=== PATIENT | male | born 1970 | race Two or more races ===

== ENCOUNTER 2017-03-01 14:48 | Inpatient (IN) | payer MEDICAID ==
[~2017-03-01] VITALS: Ht 172.7 cm; Wt 99.8 kg
[2017-03-01 15:27] LABS: BASOPHILS # (AUTO) 0.1 /CMM (0.0-0.2); BASOPHILS % (AUTO) 0.6 % (0.0-2.0); EOSINOPHILS # (AUTO) 0.7 /CMM (0.0-0.7); EOSINOPHILS % (AUTO) 6.5 % (0.0-6.0); HEMATOCRIT 47 % (39-51); HEMOGLOBIN 16.1 g/dL (13.5-17.5); LYMPHOCYTES # (AUTO) 4.4 /CMM (0.8-4.8); LYMPHOCYTES % (AUTO) 44.6 % (20.0-44.0); MEAN CORPUSCULAR HEMOGLOBIN 30 PG (26.0-33.0); MEAN CORPUSCULAR HGB CONC 35 g/dl (31.0-36.0); MEAN CORPUSCULAR VOLUME 85 fL (80-96); MONOCYTES # (AUTO) 0.7 /CMM (0.1-1.30); MONOCYTES % (AUTO) 6.8 % (2.0-12.0); NEUTROPHILS # (AUTO) 4.2 /CMM (1.8-8.9); NEUTROPHILS % (AUTO) 41.5 % (43.0-81.0); PLATELET COUNT (AUTO) 228 /CMM (150-450); RDW COEFFICIENT OF VARIATION 12.4 (11.5-15.0); RED BLOOD CELL COUNT(AUTO) 5.46 MIL/uL (4.5-6.0); WHITE BLOOD COUNT (AUTO) 10.1 K/uL (4.3-11.0)
[2017-03-01] MEDS ORDERED: ASPIRIN 325 MG TABLET PO ONE (15:30)
[2017-03-01] MEDS ORDERED: LISI10TA5 PO (15:33)
[2017-03-01] MEDS ORDERED: ASPIRIN 325 MG TABLET ONE (15:34)
[2017-03-01 15:37] LABS: CALCIUM, SERUM 8.9 mg/dL (8.5-10.1); CARBON DIOXIDE 26 mmol/L (21-32); CHLORIDE 106 mmol/L (98-107); GLUCOSE 182 mg/dL (74-106); POTASSIUM 3.8 mmol/L (3.5-5.1); SODIUM SERUM 139 mmol/L (136-145); UREA NITROGEN, BLOOD 12 mg/dL (7-18)
[2017-03-01 15:40] LABS: PROTHROMBIN TIME 10.4 SECS (9.5-12.7)
[2017-03-01 15:45] LABS: TROPONIN I < 0.017 ng/mL (0.00-0.056)
[2017-03-01] MEDS ORDERED: DEXTROSE 50%-WATER 50 ML DISP.SYRIN IV PRN (16:00)
[2017-03-01] MEDS ORDERED: ONDANSETRON HCL/PF 4 MG/2 ML VIAL IVP PRN (16:00)
[2017-03-01] MEDS ORDERED: MAG HYDROX/AL HYDROX/SIMETH 30 ML UDC PO PRN (16:00)
[2017-03-01] MEDS ORDERED: MAGNESIUM HYDROXIDE 30 ML UDC PO PRN (16:00)
[2017-03-01] MEDS ORDERED: Z GUARD REMEDY 2 OZ OINT TP PRN (16:00)
[2017-03-01] MEDS ORDERED: ACETAMINOPHEN 325 MG TABLET PO PRN (16:00)
[2017-03-01] MEDS ORDERED: ZOLPIDEM TARTRATE 5 MG TABLET PO PRN (16:00)
[2017-03-01 17:30] VITALS: BP 128/75
[2017-03-01] MEDS: BLOOD SUGAR DIAGNOSTIC 1 EACH STRIP IN SCH ×2 (17:53→22:05)
[2017-03-01] MEDS: HYDROCODONE/APAP 5/325MG 1 EACH TABLET PO PRN ×2 (17:53→22:24)
[2017-03-01] MEDS: ENOXAPARIN SODIUM 40 MG/0.4 ML DISP.SYRIN SQ SCH (18:12)
[2017-03-01 18:30] VITALS: BP 128/75
[2017-03-01 20:00] VITALS: BP 133/73
[2017-03-01] MEDS ORDERED: FLU VACC QS 2017-18(36MOS+)/PF 0.5 ML DISP.SYRIN IM ONE (20:00)
[2017-03-01] MEDS: INSULIN REGULAR, HUMAN 100 UNIT/ML 3 ML VIAL SQ PRN (22:10)
[2017-03-02] VITALS (7 sets, daily range): BP systolic 101–123; BP diastolic 63–77
[2017-03-02] MEDS: BLOOD SUGAR DIAGNOSTIC 1 EACH STRIP IN SCH ×4 (05:53→21:12)
[2017-03-02 08:07] LABS: BASOPHILS % (AUTO) 0.6 % (0.0-2.0); EOSINOPHILS # (AUTO) 0.8 /CMM (0.0-0.7); EOSINOPHILS % (AUTO) 9.4 % (0.0-6.0); HEMATOCRIT 46 % (39-51); HEMOGLOBIN 15.6 g/dL (13.5-17.5); LYMPHOCYTES # (AUTO) 4.8 /CMM (0.8-4.8); LYMPHOCYTES % (AUTO) 54.8 % (20.0-44.0); MEAN CORPUSCULAR HEMOGLOBIN 30 PG (26.0-33.0); MEAN CORPUSCULAR HGB CONC 34 g/dl (31.0-36.0); MEAN CORPUSCULAR VOLUME 88 fL (80-96); MONOCYTES # (AUTO) 0.7 /CMM (0.1-1.30); MONOCYTES % (AUTO) 7.5 % (2.0-12.0); NEUTROPHILS # (AUTO) 2.4 /CMM (1.8-8.9); NEUTROPHILS % (AUTO) 27.7 % (43.0-81.0); PLATELET COUNT (AUTO) 215 /CMM (150-450); RED BLOOD CELL COUNT(AUTO) 5.28 MIL/uL (4.5-6.0); WHITE BLOOD COUNT (AUTO) 8.7 K/uL (4.3-11.0)
[2017-03-02 08:24] LABS: CALCIUM, SERUM 8.6 mg/dL (8.5-10.1); CREATININE 0.9 mg/dL (0.6-1.3); MAGNESIUM 2.2 mg/dL (1.8-2.4); PHOSPHORUS 4.1 mg/dL (2.5-4.9); POTASSIUM 3.9 mmol/L (3.5-5.1)
[2017-03-02] MEDS ORDERED: FLU VACC QS 2017-18(36MOS+)/PF 0.5 ML DISP.SYRIN IM ONE (08:30)
[2017-03-02] MEDS: PANTOPRAZOLE 40 MG TABLET.DR PO SCH (09:00)
[2017-03-02] MEDS: LISINOPRIL (10MG) 10 MG TABLET PO SCH (09:01)
[2017-03-02] MEDS: HYDROCODONE/APAP 5/325MG 1 EACH TABLET PO PRN (12:16)
[2017-03-02] MEDS: ASPIRIN 81 MG TAB.CHEW PO SCH (16:35)
[2017-03-02] MEDS: ATORVASTATIN 10 MG TABLET PO SCH (16:35)
[2017-03-02] MEDS: ENOXAPARIN SODIUM 40 MG/0.4 ML DISP.SYRIN SQ SCH (21:10)
[2017-03-02] MEDS: INSULIN REGULAR, HUMAN 100 UNIT/ML 3 ML VIAL SQ PRN (21:23)
[2017-03-03] MEDS: BLOOD SUGAR DIAGNOSTIC 1 EACH STRIP IN SCH ×2 (05:24→12:05)
[2017-03-03 08:00] VITALS: BP 112/66
[2017-03-03] MEDS ORDERED: REGADENOSON 0.4 MG/5 ML DISP.SYRIN IVP ONE (08:00)
[2017-03-03] MEDS: PANTOPRAZOLE 40 MG TABLET.DR PO SCH (08:29)
[2017-03-03] MEDS: ATORVASTATIN 10 MG TABLET PO SCH (08:29)
[2017-03-03] MEDS: HYDROCODONE/APAP 5/325MG 1 EACH TABLET PO PRN (08:30)
[2017-03-03 08:31] VITALS: BP 126/61
[2017-03-03] MEDS: LISINOPRIL (10MG) 10 MG TABLET PO SCH (08:31)
[2017-03-03] MEDS: ASPIRIN 81 MG TAB.CHEW PO SCH (09:28)
[2017-03-03] MEDS: INSULIN REGULAR, HUMAN 100 UNIT/ML 3 ML VIAL SQ PRN (12:21)
[2017-03-03] MEDS ORDERED: ASPI-1152 PO (19:37)
== END 2017-03-03 16:00 | disposition home or self-care (01) | DRG 243 ==
LOC: ER 14:51 → TELE 16:54 → MED 03-02 13:32
PROVIDERS: ADMIT Internal Medicine; ATTEND Internal Medicine
DX: K21.9 Gastro-esophageal reflux disease without esophagitis (principal); I10 Essential (primary) hypertension; E66.9 Obesity, unspecified; F17.210 Nicotine dependence, cigarettes, uncomplicated; Z68.33 Body mass index [BMI] 33.0-33.9, adult; Z71.6 Tobacco abuse counseling; E11.9 Type 2 diabetes mellitus without complications; E78.5 Hyperlipidemia, unspecified
CPT/HCPCS: 36415; 71010-TC; 80048-TC; 80061-TC; 82962-TC; 83735-TC; 84100-TC; 84484-TC; 85025-TC; 85730-TC; 87081-TC; 93307-TC; A4606; A9502; J1650; J1815; J2785; Q2036; Z7610

== ENCOUNTER 2021-10-20 20:22 | Emergency (ER) | payer MEDICAID, OTHER ==
[~2021-10-20] VITALS: Ht 175.3 cm; Wt 97.5 kg
[~2021-10-20 20:22] MED LIST: ASPI-1420 PO; LISI10TA29 PO
[2021-10-20 20:50] VITALS: BP 157/89
--- NOTE | 2021-10-20 20:50 | NUR ---
BIBSELF C/O SORE THRAOT X 2 DAY. PT A/OX4. TOLERATING R/A WELL WITH NO SOB. AMB WITH STEADY GAIT
--- NOTE | 2021-10-20 21:06 | NUR ---
COVID ANTIGEN AND STREP SWAB COLLECTED AND SENT TO LAB
--- NOTE | 2021-10-20 22:10 | NUR ---
BS 221; EVON SEARS AWARE
--- NOTE | 2021-10-20 22:15 | NUR ---
Patient discharged to home in stable condition. Written and verbal after care instructions given. Patient verbalizes understanding of instruction. Pt ambulatory with a steady gait
== END 2021-10-20 22:17 | disposition home or self-care (01) ==
LOC: ER 20:26
DX: J02.9 Acute pharyngitis, unspecified (principal); Z20.822 Contact with and (suspected) exposure to COVID-19; E11.65 Type 2 diabetes mellitus with hyperglycemia; Z79.82 Long term (current) use of aspirin; I10 Essential (primary) hypertension; Z87.19 Personal history of other diseases of the digestive system
CPT/HCPCS: 99283; 87426; 87070; 87880; C9803; 86403-TC